=== PATIENT | female | born 1935 | race Caucasian/White ===

== ENCOUNTER 2022-05-22 08:11 | Inpatient (IN) | payer MEDICARE ==
[2022-05-22 08:30] VITALS: BP_SYST 70
[2022-05-22] MEDS ORDERED: cefTRIAXone 1 GM IVPB PREMIX 50 ML IV ONE (08:30)
[2022-05-22] MEDS ORDERED: NS 1000 ML IV.SOLN IV ONE (08:30)
--- NOTE | 2022-05-22 08:45 | NUR ---
RECEIVED PT FROM JING TEMPLE. PT NEHA ACLS FOR SOB. PT N/C 2LPM, RESP SHALLOW, PT HAS BILATERAL UPPER LOBE RHONCH. DISTAL PULSES WEAK. PT HAS LAC [address] WITH 1000ML BOLUS RUNNING FROM THE FIELS. PT AAOX1, PERRL, LETHARGIC. ABDOMEN SOFT, NONTENDER, NONDISTENDED. INCONTINENT OF BOWEL AND BLADDER. NO S/S OF PAIN NOTED. SIDERAILS UP X2.
--- NOTE | 2022-05-22 08:50 | NUR ---
DR. MOFFETT AT BEDSIDE TO ASSESS PT.
--- NOTE | 2022-05-22 09:00 | NUR ---
LABS AND XRAY COMPLETED.
--- NOTE | 2022-05-22 09:40 | NUR ---
URINE OBTAINED. PT HYPOTENSIVE, DR. MOFFETT AWARE, PT IS DNR. DAUGHTER RENÉ MADE AWARE. RENÉ STATED SHE WOULD LIKE HER MOM TO REMAIN DNR. DR. MOFFETT SPOKE WITH RENÉ AND EXPLAINED THE POSSIBILITIES FOR TREATMENT.
[2022-05-22 09:41] LABS: BASOPHILS % (AUTO) 0.3 % (0.0-2.0); HEMATOCRIT 39.5 % (36-48); LYMPHOCYTES % (AUTO) 7.3 % (20.5-51.5); MEAN CORPUSCULAR HEMOGLOBIN 29 pg (27-31); MEAN CORPUSCULAR HGB CONC 33 % (32-36); MEAN CORPUSCULAR VOLUME 90 fL (79.0-98.0); MONOCYTES # (AUTO) 1.1 K/uL (0.0-1.0); MONOCYTES % (AUTO) 8.1 % (1.7-9.3); NEUTROPHILS # (AUTO) 11.9 K/uL (1.8-7.7); NEUTROPHILS % (AUTO) 84.3 % (40.0-70.0); PLATELET COUNT (AUTO) 174 K/uL (130-430); RED BLOOD CELL COUNT(AUTO) 4.41 MIL/uL (4.2-6.2); RED CELL DISTRIBUTION WIDTH 14.3 % (9.0-15.0); WHITE BLOOD COUNT (AUTO) 14.1 K/uL (4.8-10.8)
[2022-05-22 09:46] LABS: ANION GAP 10 (5-15); CALCIUM 8.8 mg/dL (8.4-11.0); CHLORIDE 103 mmol/L (98-107); CREATININE 1.37 mg/dL (0.55-1.30); GLUCOSE 106 mg/dL (70-99); UREA NITROGEN, BLOOD 29 mg/dL (8-21)
[2022-05-22] MEDS ORDERED: ALBUTEROL SULFATE 0.083% 2.5 MG/3 ML VIAL.NEB INH ONE ×2 (10:03→10:15)
[2022-05-22] MEDS ORDERED: IPRATROPIUM BROM 0.5 MG/2.5 ML VIAL.NEB (ATROVENT) INH ONE ×2 (10:03→10:15)
[2022-05-22 10:05] LABS: ALANINE AMINOTRANSFERASE 15 U/L (12-78); ALBUMIN 3.2 g/dL (3.4-4.8); ASPARTATE AMINOTRANSFERASE 22 U/L (10-37); TOTAL BILIRUBIN 0.7 mg/dL (0.0-1.0)
--- NOTE | 2022-05-22 10:30 | NUR ---
RT NOTE: 1030 Patient placed on HFNC 25LPM, 70% FiO2. SpO2 is at 93%, FHR 103bpm, and RR 29breaths/min. Patient appears to be tolerating HFNC at this time. RN made aware of HFNC settings.
[2022-05-22] MEDS ORDERED: ACETAMINOPHEN 650 MG SUPP.RECT RC ONE ×2 (11:15→18:30)
[2022-05-22 11:31] LABS: BILIRUBIN,URINE NEGATIVE (NEGATIVE); BLOOD, URINE 2+ (NEGATIVE); CLARITY/URINE SL CLOUDY (CLEAR); COLOR,URINE YELLOW (YELLOW); GLUCOSE,URINE NEGATIVE (NEGATIVE); KETONES,URINE TRACE (NEGATIVE); LEUKOCYTE ESTERASE ,URINE 1+ (NEGATIVE); NITRITE, URINE POSITIVE (NEGATIVE); PH,URINE 7.5 (5.0-8.0); PROTEIN URINE 1+ (NEGATIVE); UROBILINOGEN,URINE 0.2 (0.2-1.0)
[2022-05-22 12:08] LABS: BACTERIA,URINE MODERATE /HPF (None Seen); HYALINE CASTS, URINE 0-10 /LPF (None Seen); URINE AMORPHOUS PHOSPHATES 1+ /HPF (None Seen)
[2022-05-22] MEDS ORDERED: MIRT-114 PO (13:32)
[2022-05-22] MEDS ORDERED: QUET50TA PO ×2 (13:32)
[2022-05-22] MEDS ORDERED: LORA-258 PO (13:32)
[2022-05-22] MEDS ORDERED: DEPS125 PO (13:32)
[2022-05-22] MEDS ORDERED: ONDANSETRON HCL 4 MG/2 ML VIAL IVP PRN (13:45)
[2022-05-22] MEDS ORDERED: HYDROcodone/ACETAMIN 10-325 MG TAB PO PRN (13:45)
[2022-05-22] MEDS ORDERED: ACETAMINOPHEN 325 MG TABLET PO PRN ×2 (13:45→16:30)
[2022-05-22] MEDS ORDERED: D5/0.45 NS 1,000 ML IV SCH (13:45)
[2022-05-22] MEDS ORDERED: HYDROcodone/ACETAMIN 5-325 MG TAB (NORCO/ VICODIN) PO PRN (13:45)
--- NOTE | 2022-05-22 14:45 | NUR ---
Daughter Aida Griffin
[2022-05-22] MEDS ORDERED: IPRATROPIUM BROM 0.5 MG/2.5 ML VIAL.NEB (ATROVENT) INH SCH (15:00)
[2022-05-22] MEDS ORDERED: ALBUTEROL SULFATE 0.083% 2.5 MG/3 ML VIAL.NEB INH SCH (15:00)
[2022-05-22] MEDS ORDERED: NS 500 ML IV ONE (15:30)
[2022-05-22] MEDS ORDERED: NACL 0.9% 1,000 ML IV SCH (15:30)
--- NOTE | 2022-05-22 16:25 | NUR ---
REPORTED TO DR. JORGE PT'S TROP 368. RECEIVED ORDER TO REPEAT TROPONIN LEVEL ON 05/13/22 AT 0500. ORDER CARRIED OUT.
--- NOTE | 2022-05-22 17:16 | NUR ---
RECEIVED ORDER FROM DR. Berry JORGE TO DISCHARGE PT HOME ON HOSPICE. SPOKE TO [facility] AT [phone] AND SPOKE TO NOHEMI WHO STATED TO CALL HER NO HER CELL PHONE AT [phone]. NOHEMI STATED THAT TRANSFER NEEDED TO BE COORDINATED. JING HOLLAND CHARGE MADE AWARE. AMALIA STATED HE WILL CLARIFY HOW TO PROCEED ER DOESN'T USUALLY DISCHARGE TO HOME ON HOSPICE. ALL INFORMATION GIVEN TO JING HOLLAND.
--- NOTE | 2022-05-22 18:18 | NUR ---
LATA CALLED [facility] ETA:[phone] PICK
--- NOTE | 2022-05-22 18:34 | NUR ---
TYLENOL 650MG SUPPOSITORY GIVEN FOR TEMP 103.5F.
[2022-05-22] MEDS ORDERED: IPRATROPIUM/ALBUTEROL SULFATE 3 ML AMPUL.NEB (DUONEB) INH SCH (19:00)
[2022-05-22] MEDS ORDERED: PIPERACILLIN/TAZO 2.25G/DEX-IS 50 ML IV SCH (19:00)
[2022-05-22 19:04] VITALS: BP_SYST 76
--- NOTE | 2022-05-22 19:19 | NUR ---
Patient given written and verbal discharge instructions and verbalizes understanding. PT DISCHARGED ON HOSPICE AND RETURNED TO FACILITY. ER MD discussed with patient the results and treatment provided. Patient in stable condition. ID arm band removed. IV catheter removed intact and dressing applied, no active bleeding. Rx of [] given. Patient educated on pain management and to follow up with PMD. Pain Scale 0/10. Opportunity for questions provided and answered. Medication side effect fact sheet provided.
[2022-05-22] MEDS ORDERED: DEXAMETHASONE SOD PHOSPHATE 10 MG/ML VIAL IVP SCH (19:30)
[2022-05-22] MEDS ORDERED: MIRTAZAPINE 15 MG TABLET PO SCH (21:00)
[2022-05-22] MEDS ORDERED: QUEtiapine FUMARATE 25 MG TABLET PO SCH (21:00)
[2022-05-22] MEDS ORDERED: DIVALPROEX SODIUM 125 MG CAP.(DEPAKOTE SPRINKLE) PO SCH (21:00)
[2022-05-23] MEDS ORDERED: LORazepam 1 MG TABLET PO SCH (09:00)
[2022-05-23] MEDS ORDERED: QUEtiapine FUMARATE 25 MG TABLET PO SCH (09:00)
== END 2022-05-22 19:19 | disposition hospice, inpatient (51) | DRG 871 ==
LOC: SED 08:11 → STU 13:38
PROVIDERS: ADMIT Preventive Medicine Preventive Medicine/Occupational Environmental Medicine; ATTEND Preventive Medicine Preventive Medicine/Occupational Environmental Medicine
PROC: 5A0935A Assistance with Respiratory Ventilation, Less than 24 Consecutive Hours, High Flow/Velocity Cannula (ICD-10-PCS; principal; 2022-05-22)
DX: A41.9 Sepsis, unspecified organism (principal); J12.82 Pneumonia due to coronavirus disease 2019; J96.01 Acute respiratory failure with hypoxia; R65.21 Severe sepsis with septic shock; U07.1 COVID-19; N17.9 Acute kidney failure, unspecified; N39.0 Urinary tract infection, site not specified; E87.20 Acidosis, unspecified; G30.9 Alzheimer's disease, unspecified; F02.80 Dementia in other diseases classified elsewhere, unspecified severity, without behavioral disturbance, psychotic disturbance, mood disturbance, and anxiety; E87.6 Hypokalemia; Z66 Do not resuscitate; E88.09 Other disorders of plasma-protein metabolism, not elsewhere classified; R73.9 Hyperglycemia, unspecified; Z51.5 Encounter for palliative care
CPT/HCPCS: 36415; 71045; 80053; 81000; 83605; 83880; 84484; 85025; 87040; 87086; 93005; 94640; 96365; 99291; G0378; J0696; J2543; J7613